=== PATIENT | male | born 1960 | race Caucasian/White ===

== ENCOUNTER → 2021-01-18 | Emergency (ER) | payer OTHER ==
[~2021-01-18] VITALS: Ht 182.9 cm; Wt 68.0 kg
[~2021-01-18] MED LIST: ACETAMINOPHEN650 M5 PO; ALPRAZOLAM 0.0.25 M1 PO; ALPRAZOLAM 0.50.5 MG PO; CALCITRATE200 MG PO; FISH OIL 1,0001 EAC5 PO; NORCO 5-325 TA1 EACH PO; PROPRANOLOL 8080 M1 PO; TRAZODONE 150150 M1 PO; VITAMIN D-32000 UNIT PO
[2021-01-18 11:01] VITALS: BP 126/70
== END ==
LOC: ER 11:00
DX: R41.82 Altered mental status, unspecified (principal); Z91.83 Wandering in diseases classified elsewhere; F84.0 Autistic disorder; Z90.89 Acquired absence of other organs; Z79.899 Other long term (current) drug therapy